=== PATIENT | female | born 1955 | race Caucasian/White ===

== ENCOUNTER 2016-09-10 23:15 | Emergency (ER) | payer MEDICARE, MEDICAID ==
[~2016-09-10] VITALS: Ht 167.6 cm; Wt 107.8 kg
[~2016-09-10 23:15] MED LIST: ARICEPT10 MG OR; CITALOPRAM40 MG OR; CRESTOR10 MG OR; DETROL2 MG OR; LOTRISONE CREAM15 GM EX; MECLIZINE12.5 M1 OR; MECLIZINE25 MG OR; NAPROXEN EC500 MG OR; OMEPRAZOLE20 M1 OR; OXYBUTYNIN5 M1 PO
[2016-09-11] MEDS ORDERED: PERCOCET 5/325M1 TAB PO (00:24)
[2016-09-11 00:55] VITALS: BP 132/65
== END 2016-09-11 00:55 | disposition home or self-care (01) ==
LOC: ED 23:15
PROC: 2W3DX1Z Immobilization of Left Lower Arm using Splint (ICD-10-PCS; principal; 2016-09-11)
DX: S52.502A Unspecified fracture of the lower end of left radius, initial encounter for closed fracture (principal); S52.602A Unspecified fracture of lower end of left ulna, initial encounter for closed fracture; W18.11XA Fall from or off toilet without subsequent striking against object, initial encounter; Y93.E8 Activity, other personal hygiene; Y92.002 Bathroom of unspecified non-institutional (private) residence as the place of occurrence of the external cause

== ENCOUNTER 2022-05-29 15:02 | Emergency (ER) | payer MEDICARE, MEDICAID ==
[2022-05-29] VITALS (7 sets, daily range): BP systolic 115–129; BP diastolic 58–86
[~2022-05-29] VITALS: Ht 167.6 cm; Wt 89.6 kg
[~2022-05-29 15:02] MED LIST changes: +PERCOCET 5/325M1 TAB PO
== END 2022-05-29 18:18 | disposition home or self-care (01) ==
LOC: ED 15:02
DX: S50.311A Abrasion of right elbow, initial encounter (principal); S50.01XA Contusion of right elbow, initial encounter; W17.89XA Other fall from one level to another, initial encounter; Y93.89 Activity, other specified; Y92.009 Unspecified place in unspecified non-institutional (private) residence as the place of occurrence of the external cause